=== PATIENT | male | born 2000 | race Caucasian/White ===

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

== ENCOUNTER 2021-03-02 21:19 | Emergency (ER) | payer OTHER, MEDICAID ==
[~2021-03-02] VITALS: Ht 157.5 cm; Wt 64.9 kg
[~2021-03-02 21:19] MED LIST changes: +AMOXICILLIN 50500 MG PO; +PREDNISONE 20 M20 M1 PO
[2021-03-02 22:06] LABS: ABSOLUTE EOSINOPHILS 0.2 thou/uL (0.0-0.7); ABSOLUTE LYMPHOCYTES 1.8 thou/uL (0.8-5.3); ABSOLUTE MONOCYTES 0.5 thou/uL (0.0-1.2); ABSOLUTE NEUTROPHILS 9.4 thou/uL (1.6-8.1); BASOPHILS 0.3 %; EOSINOPHILS 1.6 %; HEMATOCRIT 41.5 % (42.0-52.0); HEMOGLOBIN 14.3 gm/dL (14.0-18.0); LYMPHOCYTES 14.9 %; MCH 28.7 pg (26.0-34.0); MCHC 34.3 g/dL (28.0-37.0); MCV 83.5 fL (80.0-100.0); MONOCYTES 4.3 %; MPV 8.5 fl. (7.2-11.1); NUCLEATED RBCS 0 /100WBC; PLATELET COUNT* 266 thou/uL (150-400); POLYS 78.9 %; RBC 4.97 mil/uL (4.50-6.00); RDW-CV 13.5 % (10.5-14.5); WBC 11.9 thou/uL (4.0-11.0)
[2021-03-02 22:12] LABS: URINE BILIRUBIN NEGATIVE (Negative); URINE BLOOD 3+ (Negative); URINE CLARITY CLOUDY; URINE COLOR RED; URINE GLUCOSE-RANDOM NEGATIVE (Negative); URINE KETONES 1+ (Negative); URINE LEUKOCYTES-REFLEX 1+ (Negative); URINE NITRITE-REFLEX NEGATIVE (Negative); URINE PROTEIN 2+ (Negative); URINE SPECIFIC GRAVITY 1.025 (1.005-1.030)
[2021-03-02] MEDS ORDERED: DOXYCYCLINE 10100 MG PO (22:14)
[2021-03-02 22:16] LABS: CALCIUM 9.1 mg/dL (8.5-10.1); CREATININE 1.1 mg/dL (0.6-1.3); POTASSIUM 3.2 mmol/L (3.5-5.1)
[2021-03-02] MEDS ORDERED: MACROBID 100 M100 M1 PO (22:18)
[2021-03-02 22:26] LABS: CASTS None Seen /LPF (None Seen); SQUAMOUS 0-3 Few /LPF (0-3)
[2021-03-02 22:27] LABS: BACTERIA-REFLEX 1-9 Few /HPF (None Seen); URINE RBC >20 Many /HPF (0-2); URINE WBC-REFLEX >25 Many /HPF (0-5)
[2021-03-02 22:28] LABS: CRYSTALS None Seen /LPF (None Seen)
[2021-03-03 00:33] VITALS: BP 118/69
== END 2021-03-03 00:33 | disposition home or self-care (01) ==
LOC: M.ERS 21:19
PROVIDERS: Emergency Medicine
DX: N39.0 Urinary tract infection, site not specified (principal)

== ENCOUNTER 2021-09-01 16:23 | Emergency (ER) | payer OTHER, MEDICAID ==
[~2021-09-01] VITALS: Ht 185.4 cm; Wt 63.5 kg
[~2021-09-01 16:23] MED LIST changes: +DOXYCYCLINE 10100 MG PO; +MACROBID 100 M100 M1 PO
[2021-09-01 19:06] VITALS: BP 117/78
== END 2021-09-01 19:07 | disposition left against medical advice (07) ==
LOC: M.ERS 16:23
DX: R31.9 Hematuria, unspecified (principal); R30.9 Painful micturition, unspecified; Z53.21 Procedure and treatment not carried out due to patient leaving prior to being seen by health care provider